=== PATIENT | male | born 1975 | race Caucasian/White ===

== ENCOUNTER 2020-04-27 08:51 | Emergency (ER) | payer OTHER ==
[~2020-04-27] VITALS: Ht 167.6 cm; Wt 86.9 kg
--- NOTE | 2020-04-27 09:15 | PHYS DOC ---
General Adult EDM: Chief Complaint: SHORTNESS OF BREATH HPI: HPI: The history was obtained from the patient. Patient is a 45-year-old male with no reported PMH who presents with a chief complaint of shortness of breath. Patient states he was diagnosed with coronavirus 6 days ago. He states he was tested at a public health facility for shortness of breath. He states he has had progressive shortness of breath since then. He notes a dry cough. He does note chest pain but only when he coughs. He states he notices shortness of breath at rest and with ambulation. Has not tried medicine at home to help. Denies any tobacco abuse. States that he works at the local [employer] and thinks this is how he may have been exposed. Does note subjective fevers at home. Denies syncope. Denies sore throat or congestion. No other complaints. Review of Systems: Review of Systems: Constitutional: Denies fever or chills Eyes: Denies change in visual acuity HENT: Denies nasal congestion or sore throat Respiratory: Positive for shortness of breath and cough Cardiovascular: Denies chest pain or edema GI: Denies abdominal pain, nausea, vomiting, bloody stools or diarrhea : Denies dysuria Musculoskeletal: Denies back pain or joint pain Integument: Denies rash Neurologic: Denies headache, focal weakness or sensory changes Endocrine: Denies polyuria or polydipsia Lymphatic: Denies swollen glands Psychiatric: Denies depression or anxiety Heart Score: Risk Factors: Risk Factors: DM, Current or recent (<one month) smoker, HTN, HLP, family history of CAD, obesity. Risk Scores: Score 0 - 3: 2.5% MACE over next 6 weeks - Discharge Home Score 4 - 6: 20.3% MACE over next 6 weeks - Admit for Clinical Observation Score 7 - 10: 72.7% MACE over next 6 weeks - Early Invasive Strategies Allergies: Allergies: Allergies Coded Allergies Type Severity Reaction Last Updated Verified No Known Drug Allergies 04/27/20 No Physical Exam: PE: Constitutional: Well developed, well nourished, no acute distress, non-toxic appearance. [] HENT: Normocephalic, atraumatic, bilateral external ears normal, oropharynx moist, no oral exudates, nose normal. [] Eyes: PERRLA, EOMI, conjunctiva normal, no discharge. [] Neck: Normal range of motion, no tenderness, supple, no stridor. [] Cardiovascular:Heart rate tachycardic, regular rhythm, no murmur [] Lungs & Thorax: Rhonchi noted in all lung irene. No kasi wheezes appreciated. Abdomen: soft, no tenderness, no masses, no pulsatile masses. [] Skin: Warm, dry, no erythema, no rash. [] Back: No tenderness, no CVA tenderness. [] Extremities: No tenderness, no cyanosis, no clubbing, ROM intact, no edema. [] Neurologic: Alert and oriented X 3, normal motor function, normal sensory function, no focal deficits noted. [] Psychologic: Affect normal, judgement normal, mood normal. [] Current Patient Data: Labs: Laboratory Tests Test 04/27/20 09:30 White Blood Count 3.2 x10^3/uL Red Blood Count 5.04 x10^6/uL Hemoglobin 16.2 g/dL Hematocrit 45.8 % Mean Corpuscular Volume 91 fL Mean Corpuscular Hemoglobin 32 pg Mean Corpuscular Hemoglobin Concent 35 g/dL Red Cell Distribution Width 12.6 % Platelet Count 211 x10^3/uL Neutrophils (%) (Auto) 73 % Lymphocytes (%) (Auto) 14 % Monocytes (%) (Auto) 13 % Eosinophils (%) (Auto) 0 % Basophils (%) (Auto) 0 % Neutrophils # (Auto) 2.4 x10^3uL Lymphocytes # (Auto) 0.4 x10^3/uL Monocytes # (Auto) 0.4 x10^3/uL Eosinophils # (Auto) 0.0 x10^3/uL Basophils # (Auto) 0.0 x10^3/uL Sodium Level 132 mmol/L Potassium Level 4.0 mmol/L Chloride Level 96 mmol/L Carbon Dioxide Level 28 mmol/L Anion Gap 8 Blood Urea Nitrogen 12 mg/dL Creatinine 1.2 mg/dL Estimated GFR (Cockcroft-Gault) 65.2 Glucose Level 110 mg/dL Calcium Level 8.5 mg/dL Current Medications Medications (Trade) Dose Ordered Sig/Neisha Route PRN Reason Start Time Stop Time Status Last Admin Dose Admin Sodium Chloride 1,000 ml @ 1,000 mls/hr 1X ONCE IV 04/27/20 09:15 04/27/20 10:14 DC 04/27/20 09:32 Albuterol/ Ipratropium (Duoneb) 9 ml 1X ONCE NEB 04/27/20 09:15 04/27/20 10:01 DC 04/27/20 09:46 Acetaminophen (Tylenol) 1,000 mg 1X ONCE PO 04/27/20 09:15 04/27/20 10:01 DC 04/27/20 09:44 Vital Signs: Vital Signs Date Time Temp Pulse Resp B/P (MAP) Pulse Ox O2 Delivery O2 Flow Rate FiO2 04/27/20 09:34 99 15 129/80 (96) 94 Room Air 04/27/20 09:04 100.6 104 30 136/84 (101) 94 Room Air EKG: EKG: [] EKG consistent with sinus tachycardia. Ventricular rate of 102 bpm. Right axis noted. Intervals normal. No acute ischemic changes appreciated. Radiology/Procedures: Radiology/Procedures: [address] [address] IMAGING REPORT Signed PATIENT: BHAVANI DOUGLASSACCOUNT: [id number] : 09/24/1992 LOCATION: ER AGE: 27 SEX: M EXAM STATUS: REG ER ORD. PHYSICIAN: JARROD MCKEON DO REASON: seizure - rn will call when ready PROCEDURE: CT HEAD WO CONTRAST EXAM: CT Head without IV contrast INDICATION: Reason: seizure - rn will call when ready / Spl. Instructions: / History: TECHNIQUE: Multi-detector row CT images were obtained of the head without the use of IV contrast. All CT scans performed at this facility utilize dose optimization techniques as appropriate to the exam, including the following: Automated exposure control and adjustment of the mA and/or KV according to patient size (this includes techniques or standardized protocols for targeted exams where dose is indication/reason for exam). COMPARISON: Noncontrast head CTs of 12/18/2013 and 07/11/2014 FINDINGS: BRAIN PARENCHYMA: No evidence of acute intraparenchymal hemorrhage or infarct. There is some minimal parenchymal volume loss with greater white matter low density in the inferior right frontal lobe VENTRICLES & EXTRA-AXIAL SPACES: Ventricles are within normal limits. Basilar cisterns are patent. No pathologic extra-axial fluid collection or mass. ORBITS: Orbital contents are unremarkable. SINUSES: Visualized paranasal sinuses and mastoid air cells are clear. OSSEOUS & SOFT TISSUES: Calvarium and skull base are intact. IMPRESSION: 1. No acute intracranial hemorrhage, mass effect or infarct. 2. 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 Electronically signed by: Aiden Levine MD (04/27/2020 9:50 AM) [id number] DICTATED AND SIGNED BY: AIDEN LEVINE MD DATE: 04/27/20 [id number] CC: PCP,NORIS; JARROD MCKEON DO ~ [] Course & Med Decision Making: Course & Med Decision Making Pertinent Labs and Imaging studies reviewed. (See chart for details) [] Patient is a 45-year-old male who presents with chief complaint of progressive shortness of breath with cough. Initial vital signs notable for tachycardia and fever. 96% on room air. Basic labs were obtained and were grossly unremarkable. He does tell me that he tested positive for coronavirus testing approximately 6 days ago. Chest x-ray shows no focal consolidation. Potential early atypical pneumonia pattern visualized. Patient was given IV fluids and breathing treatments for comfort. On repeat examination he states he is feeling better. I did discuss the benefit of hospitalization to watch him closely given his elevated heart rate, temperature, and persistent cough and shortness of breath. He is declining at this time. I did explain to the patient that his symptoms may worsen and his oxygen levels may decrease. He states understanding of this as well as potential consequences of this and would like to go home. I did encourage him to purchase a pulse oximeter at home to monitor his oxygen levels intermittently. Utilizing shared decision making patient will be discharged home. He will be discharged home with [facility]. His vital signs remained overall stable. Slight tachycardia but remains 94% on room air. Normal blood pressure. He was ambulated with normal oxygen. Return precautions discussed and understood. Stable for discharge home. COVID-19 CRITERIA: The patient was evaluated during the global COVID-19 pandemic, and that diagnosis was suspected/considered upon their initial presentation. Their evaluation, treatment and testing was consistent with current guidelines for patients who present with complaints or symptoms that may be related to COVID-19. Dragon Disclaimer: Dragon Disclaimer: This electronic medical record was generated, in whole or in part, using a voice recognition dictation system. Departure Departure: Impression: Primary Impression: COVID-19 virus detected Additional Impressions: Cough Shortness of breath Disposition: 01 HOME/RESIDENCE PRIOR TO ADM Condition: STABLE Referrals: LIDIA HINOJOSA (PCP) Additional Instructions: You have been tested for or diagnosed with COVID-19. It is an infection caused by a new type of coronavirus. COVID-19 will cause cold-like or mild flu symptoms in most. It can cause more severe symptoms like problems breathing in some. There is no treatment for COVID-19. The body will clear the infection over time. Self-care will help to ease discomfort. Steps to Take: Self-Care Rest as needed. Healthy habits may help you feel better. Steps include: Choose healthy foods including fruits and vegetables. Drink water throughout the day. Get plenty of sleep each night. If you smoke, try to quit. It may ease breathing. Avoid alcohol. Keep Others Healthy The virus can spread to others. Droplets are released every time you sneeze or cough. The droplets can get into the mouth, nose, or eyes of people near you and lead to infection. To lower the chances of spreading COVID-19 to others: Stay at home until your doctor has said it is safe to leave. If you tested positive this will mean staying isolated until both of the following are true: At least 7 days have passed since the start of illness. You are free of fever for at least 72 hours without the use of medicine. During this time: - Avoid public areas, events, or transportation. Do not return to work or school until your doctor has said it is safe to do so. - Call ahead if you need to go to a medical center. Let them know you may have COVID-19. It will help them guide you where to go. They may also ask you to wear a facemask when you come to the office. - If you call for emergency medical services, let them know you may have COVID- 19. While at home: - Try to avoid close contact with others. Stay about 6 feet away. - If possible, spend most of your time in a separate room from others. - Use a face mask if you will be in close contact with others such as sharing a room or vehicle. - Have someone wipe down common surfaces in the home. Use household tea plantation worker every day on areas like doorknobs, counters, or sinks. - Cough or sneeze into a tissue. Throw the tissue away right after use. If a tissue is not available, cough or sneeze into your elbow. - Wash your hands often. Wash them after sneezing or coughing. Use soap and water and wash for at least 20 seconds. Alcohol based hand vat cleaner can be used if soap and water is not available. - Do not prepare food for others. Avoid sharing personal items like forks, spoons, or toothbrushes. - Avoid close contact with pets while you are sick. There is no evidence of the virus passing to pets. This is a safety step until more is known about this virus. Isolation can be frustrating. Social interaction can help. Keep in touch with friends and family through phone and tech options. You can still interact with others in your home, just keep a safe distance of about 6 feet. Follow-up: Your doctors office will check in with you to see if there are any changes in your health. You may be asked to keep track of symptoms to share with them. They will also let you know when you are clear to be in public again. Problems to Look Out For: Contact your doctor if your recovery is not going as you expect. Get emergency care if you have problems such as: - Trouble breathing - Nonstop chest pain or pressure - Changes in awareness, confusion, or problems waking - Lips or face have bluish color - Worsening of symptoms If you think you have an emergency, call for emergency medical services right away. [facility] Benzonatate (TESSALON PERLE) 100 Mg Capsule 1 CAP PO TID PRN PRN for COUGH, #21 CAP Prov: JARROD MCKEON DO 04/27/20 Justification of Admission: Justification of Admission: Justification of Admission Dx: N/A JARROD MCKEON DO Apr 27, 2020 09:15
[2020-04-27] MEDS: IV NORMAL SALINE 1,000ML 1,000 ML IV ONE (09:32)
[2020-04-27] MEDS: ACETAMINOPHEN 500 MG TABLET PO ONE (09:44)
[2020-04-27] MEDS: IPRATRPIUM/ALBUTEROL 0.5/2.5MG 3 ML NEBU. NEB ONE (09:46)
[2020-04-27 10:02] LABS: BASO % 0 % (0-3); EOS % 0 % (0-3); HEMATOCRIT 45.8 % (39.0-53.0); HEMOGLOBIN 16.2 g/dL (13.0-17.5); LYMPH # 0.4 x10^3/uL (1.0-4.8); LYMPH % 14 % (24-48); MEAN CORPUSCULAR HEMOGLOBIN 32 pg (25-35); MEAN CORPUSCULAR HGB CONC 35 g/dL (31-37); MEAN CORPUSCULAR VOLUME 91 fL (79-100); MONO # 0.4 x10^3/uL (0.0-1.1); MONO % 13 % (0-9); NEUT # 2.4 x10^3uL (1.8-7.7); NEUT % 73 % (31-73); PLATELET COUNT 211 x10^3/uL (140-400); RED BLOOD COUNT 5.04 x10^6/uL (4.30-5.70); RED CELL DISTRIBUTION WIDTH 12.6 % (11.5-14.5); WHITE BLOOD COUNT 3.2 x10^3/uL (4.0-11.0)
--- NOTE | 2020-04-27 10:04 | RAD ---
EXAM: CHEST AP ONLY INDICATION: Reason: cough. COVID + / Spl. Instructions: / History: . TECHNIQUE: Single view COMPARISON: None FINDINGS: The heart size is normal. The great vessels appear unremarkable. There is no hilar or mediastinal mass. The lungs are hypoventilatory and Ill-defined opacities are present at the left lung base and in the right infrahilar region. There is no pleural effusion or pneumothorax. There are no significant osseous abnormalities. IMPRESSION: Hypoventilatory chest showing ill-defined opacities of the left lung base and right infrahilar region. Cannot exclude atypical pneumonia. Electronically signed by: Ralph Levine MD (04/27/2020 10:00 AM) [id number]
--- NOTE | 2020-04-27 10:06 | EKG ---
[address] [address] Test Date: 2020-04-27 Test Time: 09:27:06 Pat Name: ELLEN CRANE Department: Room: Gender: M Consumer Credit Counselor: : 1975 Requested By: JARROD MCKEON Order Number: [id number] Reading MD: Measurements Intervals [place] Rate: 102 P: 160 HI: 164 QRS: 175 QRSD: 70 T: 169 QT: 310 QTc: 408 Interpretive Statements SUPRAVENTRICULAR RHYTHM LEFT ATRIAL ABNORMALITY ABNORMAL RIGHT AXIS DEVIATION QRS(T) CONTOUR ABNORMALITY CONSISTENT WITH HIGH LATERAL INFARCT AGE UNDETERMINED CONSIDER INFERIOR INFARCT ABNORMAL ECG RI6.02 No previous ECG available for comparison
[2020-04-27 10:08] LABS: CALCIUM 8.5 mg/dL (8.5-10.1); CREATININE 1.2 mg/dL (0.7-1.3); GFR 65.2
[2020-04-27] MEDS ORDERED: BENZ100C PO (10:34)
[2020-04-27 10:55] VITALS: BP 120/73
== END 2020-04-27 10:55 | disposition home or self-care (01) ==
LOC: ER 08:51
DX: U07.1 COVID-19 (principal); R05 Cough; R06.02 Shortness of breath
CPT/HCPCS: 36415; 71045; 80048; 85025; 93005; 94640; 96360; 99285; J7030